=== PATIENT | female | born 1995 | race Caucasian/White ===

== ENCOUNTER 2021-06-25 23:34 | Emergency (ER) | payer MEDICAID ==
[~2021-06-25] VITALS: Ht 167.6 cm; Wt 100.0 kg
[2021-06-25 23:53] VITALS: BP 138/87
[2021-06-26] MEDS ORDERED: HYDROCODONE/ACETAMINOPHEN 5/325MG TABLET PO ONE (00:15)
== END 2021-06-26 00:42 | disposition home or self-care (01) ==
LOC: ER 23:34
DX: S03.00XA Dislocation of jaw, unspecified side, initial encounter (principal); Y93.89 Activity, other specified; Y92.89 Other specified places as the place of occurrence of the external cause; Y99.8 Other external cause status; Z90.49 Acquired absence of other specified parts of digestive tract
CPT/HCPCS: 21480; 99284